=== PATIENT | female | born 1940 | race Caucasian/White ===

== ENCOUNTER 2017-01-10 11:11 | Emergency (ER) | payer MEDICARE, OTHER ==
--- NOTE | 2017-01-11 15:40 | ER ---
ADMIT: 01/10/2017 RM/LOC: ER [facility] MR#: [id number] [address] [id number] SUSANASANDOR SOTO [address] [place] [address] [place] [address] Emergency Room Report SEX: F AGE: 76 : 1940 DATE: 01/10/2017 ADDENDUM: A 76-year-old white female coming in with kind of a chest pain. We gave her nitroglycerin what for made her little nauseated. She vomited, she was better. I had checked a D-dimer which was elevated but the CTA of the chest is negative. This all came about I think after she had a colonoscopy recently, then I thinks she probably still have a little bit of gas left. I think that probably irritated her upper part of her abdomen. When she vomited, I think she got good relief and she has been pain free since. Her troponin was negative. I gave her some Zofran just in case if she continued to be nauseated. We gave her 10 of them 1 p.o. 4-6 p.r.n. pain 4 mg. She should follow up as needed or return here if condition changes. CONDITION ON DISCHARGE: Good. Kiko Mcarthur MD/ jaya JOB #: [id number] CC: Kiko Mcarthur MD, Attending Physician UNKNOWN, Family Physician
== END 2017-01-10 14:00 | disposition home or self-care (01) ==
LOC: ER 11:11
DX: R07.89 Other chest pain (principal); R11.2 Nausea with vomiting, unspecified; I10 Essential (primary) hypertension; E78.5 Hyperlipidemia, unspecified; Z90.710 Acquired absence of both cervix and uterus; Z98.890 Other specified postprocedural states; Z79.899 Other long term (current) drug therapy

== ENCOUNTER → 2017-03-03 | Outpatient (CLI) | payer MEDICARE, OTHER | END | disposition home or self-care (01) | LOC: RAD.S 02-26 13:55 | DX: Z12.31 Encounter for screening mammogram for malignant neoplasm of breast (principal); R10.13 Epigastric pain; R11.10 Vomiting, unspecified; K83.8 Other specified diseases of biliary tract ==

== ENCOUNTER → 2017-03-08 | Outpatient (CLI) | payer MEDICARE, OTHER | END | disposition home or self-care (01) | LOC: RAD.S 14:17 | DX: R92.0 Mammographic microcalcification found on diagnostic imaging of breast (principal) ==